=== PATIENT | female | born 1995 | race Caucasian/White ===

== ENCOUNTER 2019-02-11 15:21 | Emergency (ER) | payer OTHER ==
[2019-02-11 16:37] LABS: APPEARANCE,URINE Clear (CLEAR); BILIRUBIN,URINE Negative (NEGATIVE); COLOR,URINE Yellow (YELLOW); GLUCOSE, URINE (UA) Negative (NEGATIVE); KETONES,URINE Negative (NEGATIVE); LEUKOCYTE ESTERASE ,URINE Negative (NEGATIVE); NITRATE,URINE Negative (NEGATIVE); OCCULT BLOOD,URINE Large (NEGATIVE); PH,URINE 5.5 (5.0-8.0); PROTEIN,URINE Negative (NEGATIVE)
[2019-02-11 16:39] LABS: HCG,QUAL RESULT POSITIVE (NEGATIVE)
[2019-02-11 16:59] LABS: BACTERIA,URINE Few /HPF (None Seen); MUCUS,URINE Few LPF (None Seen)
== END 2019-02-11 18:45 | disposition home or self-care (01) ==
LOC: EDH 15:21
DX: O20.0 Threatened abortion (principal); Z3A.01 Less than 8 weeks gestation of pregnancy
CPT/HCPCS: 36415; 76801; 81001; 81025; 84702; 86900; 86901

== ENCOUNTER 2019-02-12 05:21 | Emergency (ER) | payer OTHER ==
[2019-02-12] MEDS ORDERED: SODIUM CHLORIDE 0.9% 1000ML 1,000 ML IV ONE ×2 (05:51→06:17)
[2019-02-12 06:08] LABS: BASOPHILS % (AUTO) 0.2 % (0.0-5.0); EOSINOPHILS % (AUTO) 0.9 % (0.0-8.0); HEMATOCRIT 36.3 % (36-48); LYMPHOCYTES % (AUTO) 16.4 % (21.0-51.0); MEAN CORPUSCULAR HEMOGLOBIN 31.8 pg (27.0-33.0); MEAN CORPUSCULAR HGB CONC 34.2 g/dL (32.0-36.0); MONOCYTES % (AUTO) 6.3 % (3.0-13.0); NEUTROPHILS % (AUTO) 76.2 % (40.0-77.0); PLATELET COUNT (AUTO) 236 K/uL (130-400); RED BLOOD CELL COUNT(AUTO) 3.91 MIL/uL (4.00-5.50); WHITE BLOOD COUNT (AUTO) 4.8 K/uL (4.8-10.8)
[2019-02-12] MEDS ORDERED: METOCLOPRAMIDE 10 MG/2 ML VIAL ONE (06:16)
[2019-02-12] MEDS ORDERED: ONDANSETRON HCL 4 MG/2 ML VIAL ONE (06:17)
[2019-02-12] MEDS ORDERED: KETOROLAC TROMETHAMINE 30MG/ML ONE (06:17)
== END 2019-02-12 07:18 | disposition home or self-care (01) ==
LOC: EDH 05:21
DX: O03.9 Complete or unspecified spontaneous abortion without complication (principal)
CPT/HCPCS: 36415; 84702; 85025; 96374; 96375; 99284; J1885; J2405; J2765; J7030 ×2

== ENCOUNTER 2023-02-27 22:10 | Emergency (ER) | payer MEDICAID ==
[2023-02-27 22:17] VITALS: BP 111/68; PULSE 71; RESP 18; O2SAT 98
[2023-02-27] MEDS ORDERED: CYCLOBENZAPRINE HCL 10 MG TABLET PO ONE (23:00)
[2023-02-27] MEDS ORDERED: KETOROLAC 30MG VIAL (30MG/ML) IVP ONE (23:00)
[2023-02-28] MEDS ORDERED: CYCL10TA16 PO
[2023-02-28] MEDS ORDERED: IBUP-2070 PO
== END 2023-02-28 00:11 | disposition home or self-care (01) ==
LOC: EDH 22:10
DX: M25.562 Pain in left knee (principal)
CPT/HCPCS: 99283; 96374; 73562; J1885